=== PATIENT | female | born 1955 | race Caucasian/White ===

== ENCOUNTER 2020-12-18 13:58 | Emergency (ER) | payer MEDICARE ==
[~2020-12-18] VITALS: Ht 175.3 cm; Wt 88.5 kg
[~2020-12-18 13:58] MED LIST: CIPRO500 MG PO; LIPITOR PO; NEXIUM PO; NORCO 10-325 T1 EACH PO
[2020-12-18 14:56] LABS: BASOPHILS % 0.4 % (0.0-1.0); EOSINOPHILS # (AUTO) 0.2 (0.0-0.4); EOSINOPHILS % 1.9 % (0.0-6.0); HEMATOCRIT 41.3 % (34.2-44.1); HEMOGLOBIN 13.2 g/dL (12.0-16.0); LYMPHOCYTES # (AUTO) 1.8 (1.0-3.2); LYMPHOCYTES % 19.2 % (18.0-39.1); MEAN CORPUSCULAR HEMOGLOBIN 29.8 pg (28-32); MEAN CORPUSCULAR VOLUME 93.2 fL (81-99); MONOCYTES # (AUTO) 0.8 (0.2-0.8); MONOCYTES % 8.3 % (4.4-11.3); NEUTROPHILS # (AUTO) 6.6 (2.1-6.9); NEUTROPHILS % 69.9 % (38.7-80.0); PLATELET COUNT 238 x10e3/uL (140-360); RED BLOOD COUNT 4.43 x10e6/uL (3.6-5.1); RED CELL DISTRIBUTION WIDTH 12.9 % (11.7-14.4)
[2020-12-18 15:22] LABS: ALBUMIN 3.7 g/dL (3.5-5.0); ANION GAP 16.2 mmol/L (8-16); CALCIUM 9.6 mg/dL (8.4-10.2); CREATININE, SERUM 0.98 mg/dL (0.57-1.11); POTASSIUM 4.2 mmol/L (3.5-5.1)
[2020-12-18 15:31] LABS: CLARITY,URINE SL CLOUDY (CLEAR); COLOR,URINE YELLOW (YELLOW)
[2020-12-18 15:32] LABS: KETONES,URINE NEGATIVE (NEGATIVE); LEUKOCYTE ESTERASE ,URINE 1+ (NEGATIVE); NITRITE,URINE NEGATIVE (NEGATIVE); PROTEIN,URINE DIPSTICK NEGATIVE (NEGATIVE); URINE UROBILINOGEN 0.2 mg/dL (0.2 - 1)
[2020-12-18 16:09] LABS: BACTERIA,URINE FEW /HPF; EPITHELIAL CELLS,URINE FEW /LPF
[2020-12-18 16:10] LABS: MUCUS,URINE FEW (RARE)
[2020-12-18] MEDS ORDERED: SODIUM CHLORIDE 0.9% 1000ML 1,000 ML IV STA (16:42)
[2020-12-18] MEDS ORDERED: CEPHALEXIN500 MG PO (16:44)
[2020-12-18] MEDS ORDERED: FLAGYL500 MG PO (16:50)
[2020-12-18] MEDS ORDERED: CIPRO250 MG PO (16:50)
[2020-12-18] MEDS ORDERED: METRONIDAZOLE 500 MG TAB PO ONE (17:00)
[2020-12-18] MEDS ORDERED: CEFTRIAXONE SOD 1 GM VIAL IM ONE (17:00)
[2020-12-18] MEDS ORDERED: SODIUM CHLORIDE 0.9% 1000ML 1,000 ML IV ONE (17:00)
[2020-12-18] MEDS ORDERED: CIPROFLOXACIN 500 MG TAB PO SCH (17:00)
== END 2020-12-18 18:11 | disposition home or self-care (01) ==
LOC: ER 15:17
DX: R10.12 Left upper quadrant pain (principal); R30.0 Dysuria; K52.9 Noninfective gastroenteritis and colitis, unspecified; N39.0 Urinary tract infection, site not specified; E78.5 Hyperlipidemia, unspecified
CPT/HCPCS: 36415; 74176; 80053; 81001; 81025; 83690; 85025; 99284; J7030